=== PATIENT | female | born 1985 | race Caucasian/White ===

== ENCOUNTER 2025-01-10 12:25 | Emergency (ER) | payer OTHER ==
[~2025-01-10] VITALS: Ht 162.6 cm; Wt 56.0 kg
[2025-01-10 12:37] VITALS: O2SAT 99
[2025-01-10 13:17] LABS: BASOPHILS % 0.3 % (0.0-2.0); EOSINOPHILS % 0.2 % (0.0-5.0); HEMATOCRIT. 37.5 % (36.0-48.0); HEMOGLOBIN. 12.8 g/dL (12.0-16.0); LYMPHOCYTES % 10.2 % (20.0-50.0); MEAN PLATELET VOLUME 8.9 fl (7.4-10.4); MONOCYTES % 3.3 % (2.0-8.0); NEUTROPHILS % 86.0 % (40.0-76.0); PLATELET 220 x1000/uL (130-400); RED BLOOD CELL COUNT 4.04 mill/uL (4.2-5.4); RED CELL DISTRIBUTION WIDTH 11.7 % (11.6-14.6)
[2025-01-10 13:33] LABS: CREATININE 1.0 mg/dL (0.6-1.0)
[2025-01-10 13:34] LABS: UREA NITROGEN BLOOD 11 mg/dL (9-23)
[2025-01-10] MEDS: ONDANSETRON 4MG ODT PO ONE ×2 (14:03→15:26)
[2025-01-10 14:23] LABS: COLOR URINE YELLOW (YELLOW)
[2025-01-10 14:24] LABS: GLUCOSE URINE NEGATIVE (NEGATIVE); KETONES URINE 1+ (NEGATIVE); NITRITE URINE NEGATIVE (NEGATIVE); OCCULT BLOOD URINE NEGATIVE (NEGATIVE); PH URINE 5.5 (4.5-8.0); PROTEIN URINE NEGATIVE (NEGATIVE); SPECIFIC GRAVITY URINE 1.025 (1.005-1.030); UROBILINOGEN URINE 0.2 E.U./dL (0.2-1.0)
[2025-01-10 14:25] LABS: LEUKOCYTE ESTERASE URINE NEGATIVE (NEGATIVE)
[2025-01-10 14:31] LABS: CLARITY URINE CLEAR (CLEAR)
[2025-01-10 15:14] LABS: ASPARTATE AMINOTRANSFERASE 21 IU/L (<34); BILIRUBIN DIRECT 0.3 mg/dL (<=3.0); BILIRUBIN TOTAL 0.9 mg/dL (0.1-1.0); HCG SCREEN NEGATIVE; PROTEIN TOTAL 7.1 g/dL (6.0-8.3)
[2025-01-10] MEDS: ACETAMINOPHEN 325MG TABLET PO ONE (15:26)
[2025-01-10] MEDS ORDERED: ONDA-239 PO (16:07)
[2025-01-10 16:15] VITALS: BP 104/57; PULSE 72; RESP 14; TEMP 36.6; O2SAT 99
== END 2025-01-10 16:22 | disposition home or self-care (01) ==
LOC: ER 12:25
DX: R11.2 Nausea with vomiting, unspecified (principal); R51.9 Headache, unspecified; R19.7 Diarrhea, unspecified
CPT/HCPCS: 99284; 80076; 80048; 81003; 81025; 84703; 83690; 85025; 36415; Q0162